=== PATIENT | male | born 1980 | race Caucasian/White ===

== ENCOUNTER 2018-07-04 20:59 | Emergency (ER) | payer BC, OTHER ==
[~2018-07-04] VITALS: Ht 180.3 cm; Wt 113.4 kg
--- OUTSIDE RECORDS SUMMARY | 2018-07-04 21:03 | XMS REPORT | Continuity of Care Document ---
Author Author [facility] Organization [facility] Address Unknown Phone Unavailable Support Name Relationship Address Phone MICKEY WILHELM Next Of Kin [address] [place] [address] Insurance Providers Payer Name Policy Number Subscriber Name Relationship [facility] [id number] Stephon Marinelli 01 Self / Same As Patient Problems No Known Problems or Medical conditions. Allergies, Adverse Reactions, Alerts No known allergies Medications No known medications Response Recorded Date/Time Status not known Unknown Results No Known Relevant Diagnostic Tests, Laboratory Data and/or Discharge Summary.
--- OUTSIDE RECORDS SUMMARY | 2018-07-04 21:03 | XMS REPORT | Continuity of Care Document ---
Author Author [facility] Organization [facility] Address Unknown Phone Unavailable Allergies There is no data. Medications There is no data. Problems Date Dx Coded Attending Type Code Diagnosis Diagnosed By 02/11/2013 ERNESTINA ADAMS MD Ot 327.23 OBSTRUCTIVE SLEEP APNEA (ADULT) (PEDIATR 10/28/2014 ERNESTINA ADAMS MD R Ot 729.5 03/10/2015 ERNESTINA ADAMS MD R Ot 729.5 03/29/2015 ERNESTINA ADAMS MD R Ot 729.5 06/22/2017 ERNESTINA ADAMS MD R Ot 729.5 PAIN IN LIMB 06/22/2017 ERNESTINA ADAMS MD R Ot 729.5 PAIN IN LIMB 06/22/2017 ERNESTINA ADAMS MD R Ot 729.5 PAIN IN LIMB 09/18/2017 ERNESTINA ADAMS MD R Ot 729.5 PAIN IN LIMB Procedures There is no data. Results There is no data. Encounters ACCT No. Visit Date/Time Discharge Status Pt. Type Provider Facility Loc./Unit Complaint [id number] 05/11/2013 16:50:00 05/11/2013 23:59:59 CLS Outpatient ERNESTINA ADAMS MD [facility] RAD PAIN IN HEEL IN LFT FOOT [id number] 02/10/2013 21:01:00 02/11/2013 06:10:00 DIS Outpatient ERNESTINA ADAMS MD [facility] SLEEP KYMBERLY,SNORING
[2018-07-04] MEDS ORDERED: LIDOCAINE 1% INJ 20 ML 20 ML VIAL ONE (21:08)
[2018-07-04] MEDS ORDERED: CEPH-507 PO (21:24)
--- NOTE | 2018-07-04 21:25 | ED Upper Extremity ---
General Stated Complaint: L ELBOW LAC Source: patient Exam Limitations: no limitations History of Present Illness Date Seen by Provider: Jul 04, 2018 Time Seen by Provider: 21:20 Initial Comments To ER with reports of a laceration to the dorsal aspect left forearm. This occurred when he fell in the gravel parking lot at [employer] after leaving the basketball game earlier this evening. Tetanus vaccination status is uncertain. Onset: just prior to arrival Severity: mild Pain/Injury Location: left forearm Method of Injury: fell Modifying Factors: Worse With Movement Allergies and Home Medications Allergies Coded Allergies: No Known Drug Allergies (Unverified , 07/04/18) Home Medications Cephalexin 500 Mg Capsule, 500 MG PO TID Prescribed by: TOAN DUMONT on 07/04/182123 Patient Home Medication List Home Medication List Reviewed: Yes Review of Systems Constitutional: see HPI EENTM: see HPI Respiratory: no symptoms reported Cardiovascular: no symptoms reported Genitourinary: no symptoms reported Musculoskeletal: no symptoms reported Skin: see HPI Psychiatric/Neurological: No Symptoms Reported Past Cwxywsu-Nxuzwm-Ulcvpm Hx Patient Social History Recent Foreign Travel: No Contact w/Someone Who Travel: No Physical Exam Vital Signs Vital Signs - First Documented 07/04/18 21:05 Temp 98.0 Pulse 88 Resp 20 B/P (MAP) 133/86 (102) Pulse Ox 97 O2 Delivery Room Air Capillary Refill : Height, Weight, BMI Height: '" Weight: lbs. oz. kg; BMI Method: General Appearance: WD/WN, no apparent distress HEENT: PERRL/EOMI, normal ENT inspection Neck: non-tender, full range of motion Respiratory: no respiratory distress, no accessory muscle use Shoulder: normal inspection, non-tender Elbow/Forearm: Left, limited ROM (there is a 1 cm laceration with depth to the subcutaneous tissues to the dorsal aspect proximal left forearm) Wrist: Yes normal inspection, Yes non-tender Hand: normal inspection, non-tender Neurologic/Tendon: normal motor functions, normal tendon functions, other ( Does report a sensation of having "hit the funny bone") Neurologic/Psychiatric: alert, normal mood/affect, oriented x 3 Skin: normal color, warm/dry Progress/Results/Core Measures Results/Orders My Orders Orders - TOAN DUMONT NIGHT CLERK Lidocaine 1% Inj 20 Ml (Xylocaine 1% Inj (07/04/18 21:08) Dipht,Pertuss(Acell),Tet Adult (Boostrix (07/04/18 21:30) Cephalexin Capsule (Keflex Capsule) (07/04/18 21:30) Lidocaine 1% Inj 20 Ml (Xylocaine 1% Inj (07/04/18 21:30) Departure Impression Primary Impression: Arm laceration Qualified Codes: S41.112A - Laceration without foreign body of left upper arm , initial encounter Disposition: 01 HOME, SELF-CARE Condition: Improved Departure-Patient Inst. Decision time for Depature: 21:23 Referrals: ERNESTINA ADAMS MD (PCP/Family) Primary Care Physician Patient Instructions: Laceration Repair With Stitches (DC) Add. Discharge Instructions: 1. You may shower allowing water run over the starting tomorrow. Return to ER for any redness swelling or sign of infection. If the tingling sensation that she will have as if you take your funny bone persists, follow up with Dr. Loya from [facility]. Return to the emergency room in 7-10 days, (probably closer to the ten-day anshul with better) to have the stitches removed. Take antibiotics as directed. Scripts Cephalexin (Keflex) 500 Mg Capsule 500 MG PO TID, #15 CAP Prov: TOAN DUMONT APRN 07/04/18 Images Extremities-Upper 1 - Laceration TOAN DUMONT APRN Jul 04, 2018 21:24
[2018-07-04] MEDS ORDERED: CEPHALEXIN 250 MG (KEFLEX) CAP PO ONE (21:30)
[2018-07-04] MEDS ORDERED: LIDOCAINE 1% INJ 20 ML 20 ML VIAL INJ ONE (21:30)
[2018-07-04] MEDS ORDERED: TETANUS,DIPTH,PERTUSS P/F (BOOSTRIX) 0.5 ML VIAL IM ONE (21:30)
[2018-07-04 21:35] VITALS: BP 133/86
== END 2018-07-04 21:35 | disposition home or self-care (01) ==
LOC: EDUNIT# 20:59 → ER 21:00
DX: S51.812A Laceration without foreign body of left forearm, initial encounter (principal); Z23 Encounter for immunization; W19.XXXA Unspecified fall, initial encounter; Y92.481 Parking lot as the place of occurrence of the external cause
CPT/HCPCS: 12002; 90715